=== PATIENT | male | born 1940 | race Caucasian/White ===

== ENCOUNTER 2021-04-02 | Emergency (ER) | payer MEDICARE | END 2021-04-02 09:59 | disposition home or self-care (01) | CPT/HCPCS: 36415; 80053; 81001; 82272; 83605; 85025; 85610; 85730; 86850; 86900; 86901; 87077; 87086; 87186; 93005; 96361; 96374; 99284 ==

== ENCOUNTER 2021-04-17 21:50 | Inpatient (IN) | payer MEDICARE ==
[2021-04-17] MEDS ORDERED: IPRATROPIUM-ALBUTEROL 3 ML NEB INHALATION STA ×2 (22:07→23:22)
[2021-04-17] MEDS ORDERED: MORPHINE SULFATE 4 MG/ML SYRINGE IVP STA (22:27)
--- NOTE | 2021-04-17 22:32 | ED ---
SOB HPI - General Chief Complaint: Shortness of Breath Stated Complaint: LYNN Time Seen by Provider: 04/17/21 22:00 Source: EMS, RN notes reviewed, old records reviewed Mode of arrival: EMS Limitations: altered mental status - History of Present Illness Initial Comments: This is a 80-year-old male poor story secondary able clinical state and unknown baseline mental status. EMS states patient is significantly short of breath call was for shortness of b reath and hypoxia. Patient's presented to the ER on BiPAP and respiratory failure, oxygens in the 50s to 60s MD Complaint: shortness of breath, cough -: unknown Severity: severe Severity scale (1-10): 10 Consistency: constant Improves With: nothing Worsens With: nothing Known History Of: congestive heart failure Context: recent URI, recent illness Associated Symptoms: cough, sputum production Treatments Prior to Arrival: oxygen, bronchodilator, NIPPV - Related Data Previous Rx's Medication Instructions Recorded Cephalexin [Keflex] 500 mg PO Q6HR 7 Days #28 cap 04/02/21 Allergies Allergy/AdvReac Type Severity Reaction Status Date / Time atorvastatin [From Lipitor] Allergy Unknown Verified 04/02/21 08:24 erythromycin base Allergy Unknown Verified 04/02/21 08:24 Iodinated Contrast Media Allergy Unknown Verified 04/02/21 08:24 Review of Systems ROS Statement: Those systems with pertinent positive or pertinent negative responses have been documented in the HPI. ROS Other: All systems not noted in ROS Statement are negative. Past Medical History Past Medical History: Atrial Fibrillation, Atrial Flutter, Heart Failure, Diabetes Mellitus, Hyperlipidemia, Hypertension, Osteoarthritis (OA), Renal Disease Additional Past Medical History / Comment(s): gastric ulcers, type 2DM. anemia, aortic avalve stenosis History of Any Multi-Drug Resistant Organisms: None Reported Past Surgical History: Ablation Past Psychological History: Anxiety Smoking Status: Former smoker Past Alcohol Use History: None Reported Past Drug Use History: None Reported General Exam Limitations: altered mental status, physical limitation General appearance: alert, anxious, obtunded, in distress Head exam: Present: atraumatic, normocephalic, normal inspection Eye exam: Present: normal appearance, PERRL, EOMI. Absent: scleral icterus, conjunctival injection, periorbital swelling ENT exam: Present: normal exam, mucous membranes moist Neck exam: Present: normal inspection. Absent: tenderness, meningismus, lymphadenopathy Respiratory exam: Present: respiratory distress, wheezes, rhonchi, accessory muscle use, decreased breath sounds, prolonged expiratory. Absent: rales, stridor Cardiovascular Exam: Present: regular rate, normal rhythm, normal heart sounds. Absent: systolic murmur, diastolic murmur, rubs, gallop, clicks GI/Abdominal exam: Present: soft, normal bowel sounds. Absent: distended, tenderness, guarding, rebound, rigid Extremities exam: Present: normal inspection, full ROM, normal capillary refill. Absent: tenderness, pedal edema, joint swelling, calf tenderness Back exam: Present: normal inspection Neurological exam: Present: alert, oriented X3, CN II-XII intact Psychiatric exam: Present: normal affect, normal mood Skin exam: Present: warm, dry, intact, normal color. Absent: rash Course Vital Signs 04/17/21 04/17/21 04/17/21 21:52 22:09 22:28 Temperature 98.0 F Pulse Rate 63 60 Respiratory 24 30 H Rate Blood Pressure 122/88 O2 Sat by Pulse 90 L Oximetry 04/17/21 22:41 Temperature Pulse Rate 64 Respiratory Rate Blood Pressure O2 Sat by Pulse Oximetry - Reevaluation(s) Reevaluation #1: 04/17/21 23:28 Medical records reviewed Reevaluation #2: 04/17/21 23:28 Patient's continues remained significantly short of breath here in the ER on BiPAP Reevaluation #3: 04/17/21 23:28 Did speak with patient regarding findings of difficult to tell what his mental status is - Consultations Consultation #1: Spoke with PMH regarding admission there agreed Medical Decision Making - Medical Decision Making 80 male in acute respiratory failure, significant pulmonary edema and ARDS. Patient will be admitted for pulmonary and cardiology to evaluate, on BiPAP - Lab Data Result diagrams: 04/17/21 22:07 04/17/21 22:07 Lab Results 04/17/21 04/17/21 04/17/21 Range/Units 22:07 22:07 22:07 WBC 13.9 H (3.8-10.6) k/uL RBC 4.31 (4.30-5.90) m/uL Hgb 11.8 L (13.0-17.5) gm/dL Hct 38.7 L (39.0-53.0) % MCV 89.8 (80.0-100.0) fL MCH 27.4 (25.0-35.0) pg MCHC 30.5 L (31.0-37.0) g/dL RDW 18.3 H (11.5-15.5) % Plt Count 182 (150-450) k/uL MPV 7.8 Neutrophils % 87 % Lymphocytes % 5 % Monocytes % 6 % Eosinophils % 1 % Basophils % 0 % Neutrophils # 12.2 H (1.3-7.7) k/uL Lymphocytes # 0.6 L (1.0-4.8) k/uL Monocytes # 0.8 (0-1.0) k/uL Eosinophils # 0.2 (0-0.7) k/uL Basophils # 0.0 (0-0.2) k/uL Hypochromasia Marked Anisocytosis Slight PT 16.4 H (9.0-12.0) sec INR 1.6 H (<1.2) APTT 34.6 H (22.0-30.0) sec Sodium 125 L (137-145) mmol/L Potassium 5.9 H (3.5-5.1) mmol/L Chloride 97 L (98-107) mmol/L Carbon Dioxide 17 L (22-30) mmol/L Anion Gap 11 mmol/L BUN 41 H (9-20) mg/dL Creatinine 1.82 H (0.66-1.25) mg/dL Est GFR (CKD-EPI)AfAm 40 (>60 ml/min/1.73 sqM) Est GFR (CKD-EPI)NonAf 35 (>60 ml/min/1.73 sqM) Glucose 96 (74-99) mg/dL Plasma Lactic Acid Brad (0.7-2.0) mmol/L Calcium 8.2 L (8.4-10.2) mg/dL Magnesium 2.9 H (1.6-2.3) mg/dL Total Bilirubin 0.6 (0.2-1.3) mg/dL AST 38 (17-59) U/L ALT 13 (4-49) U/L Alkaline Phosphatase 80 (38-126) U/L Creatine Kinase 23 L (55-170) U/L Troponin I (0.000-0.034) ng/mL Total Protein 6.6 (6.3-8.2) g/dL Albumin 2.9 L (3.5-5.0) g/dL 04/17/21 04/17/21 Range/Units 22:07 22:07 WBC (3.8-10.6) k/uL RBC (4.30-5.90) m/uL Hgb (13.0-17.5) gm/dL Hct (39.0-53.0) % MCV (80.0-100.0) fL MCH (25.0-35.0) pg MCHC (31.0-37.0) g/dL RDW (11.5-15.5) % Plt Count (150-450) k/uL MPV Neutrophils % % Lymphocytes % % Monocytes % % Eosinophils % % Basophils % % Neutrophils # (1.3-7.7) k/uL Lymphocytes # (1.0-4.8) k/uL Monocytes # (0-1.0) k/uL Eosinophils # (0-0.7) k/uL Basophils # (0-0.2) k/uL Hypochromasia Anisocytosis PT (9.0-12.0) sec INR (<1.2) APTT (22.0-30.0) sec Sodium (137-145) mmol/L Potassium (3.5-5.1) mmol/L Chloride (98-107) mmol/L Carbon Dioxide (22-30) mmol/L Anion Gap mmol/L BUN (9-20) mg/dL Creatinine (0.66-1.25) mg/dL Est GFR (CKD-EPI)AfAm (>60 ml/min/1.73 sqM) Est GFR (CKD-EPI)NonAf (>60 ml/min/1.73 sqM) Glucose (74-99) mg/dL Plasma Lactic Acid Brad 2.2 H* (0.7-2.0) mmol/L Calcium (8.4-10.2) mg/dL Magnesium (1.6-2.3) mg/dL Total Bilirubin (0.2-1.3) mg/dL AST (17-59) U/L ALT (4-49) U/L Alkaline Phosphatase (38-126) U/L Creatine Kinase (55-170) U/L Troponin I 0.014 (0.000-0.034) ng/mL Total Protein (6.3-8.2) g/dL Albumin (3.5-5.0) g/dL - EKG Data -: EKG Interpreted by Me (EKG is paced rhythm of 60 QRS 180 QTC 581) - Radiology Data Radiology results: report reviewed (Chest x-ray has significant pulmonary edema), image reviewed Critical Care Time Critical Care Time: Yes Total Critical Care Time: 31 Disposition Clinical Impression: Congestive heart failure, Acute pulmonary edema, Acute respiratory failure Disposition: ADMITTED IP TO THIS HOSP Condition: Critical Is patient prescribed a controlled substance at d/c from ED?: No Referrals: Salvatore Ha DO [Primary Care Provider] - 1-2 days
[2021-04-17 22:42] LABS: Albumin 2.9 g/dL (3.5-5.0); Calcium 8.2 mg/dL (8.4-10.2); Magnesium 2.9 mg/dL (1.6-2.3); Potassium 5.9 mmol/L (3.5-5.1); Total Bilirubin 0.6 mg/dL (0.2-1.3); Total Protein 6.6 g/dL (6.3-8.2)
--- NOTE | 2021-04-17 22:43 | XR ---
EXAMINATION TYPE: XR chest 1V portable DATE OF EXAM: 04/17/2021 COMPARISON: 05/03/2013 HISTORY: Short of breath TECHNIQUE: FINDINGS: There is pulmonary airspace edema. There is blunting of the costophrenic angles and more on the right side. There is left x-ray pacemaker. There are sternal wires. IMPRESSION: Congestive heart failure with pulmonary edema and pleural effusions that is essentially n ew compared to old exam.
[2021-04-17 22:48] LABS: INR 1.6 (<1.2); Partial Thromboplastin Time 34.6 sec (22.0-30.0); Prothrombin Time 16.4 sec (9.0-12.0)
[2021-04-17 22:57] LABS: Anisocytosis Slight; Basophils % (A) 0 %; Eosinophils # (A) 0.2 k/uL (0-0.7); Eosinophils % (A) 1 %; HCT 38.7 % (39.0-53.0); HGB 11.8 gm/dL (13.0-17.5); Hypochromasia Marked; Lymphocytes # (A) 0.6 k/uL (1.0-4.8); Lymphocytes % (A) 5 %; MCH 27.4 pg (25.0-35.0); MCHC 30.5 g/dL (31.0-37.0); MCV 89.8 fL (80.0-100.0); Mean Platelet Volume 7.8; Monocytes # (A) 0.8 k/uL (0-1.0); Monocytes % (A) 6 %; Neutrophils # (A) 12.2 k/uL (1.3-7.7); Neutrophils % (A) 87 %; Platelet Count 182 k/uL (150-450); RBC 4.31 m/uL (4.30-5.90); RDW 18.3 % (11.5-15.5); WBC 13.9 k/uL (3.8-10.6)
[2021-04-17] MEDS ORDERED: IPRATROPIUM-ALBUTEROL 3 ML NEB INHALATION PRN (23:22)
[2021-04-17] MEDS ORDERED: FUROSEMIDE 10 MG/ML 10 ML VIAL IV STA (23:22)
[2021-04-17] MEDS ORDERED: FUROSEMIDE 10 MG/ML 4 ML VIAL IV SCH (23:30)
[2021-04-18] MEDS ORDERED: MORPHINE SULFATE 4 MG/ML SYRINGE IVP PRN (00:46)
[2021-04-18] MEDS ORDERED: LORazepam 2 MG/ML INJ IV STA (00:46)
[2021-04-18] MEDS: LORazepam 2 MG/ML INJ IV PRN ×2 (02:17→07:04)
[2021-04-18] MEDS ORDERED: ACETAMINOPHEN TAB 325 MG TAB PO PRN (09:12)
[2021-04-18] MEDS ORDERED: MELATONIN 3 MG TABLET PO PRN (09:12)
[2021-04-18] MEDS ORDERED: SENNOSIDES 8.6 MG TAB PO PRN (09:12)
[2021-04-18] MEDS ORDERED: APIXABAN 5 MG TAB PO SCH ×2 (09:15→09:45)
[2021-04-18] MEDS ORDERED: FERROUS SULFATE 325 MG TAB PO SCH (09:15)
[2021-04-18] MEDS ORDERED: METOPROLOL SUCCINATE (ER) 100 MG TAB.ER.24H PO SCH (09:15)
[2021-04-18 09:41] LABS: Glucose,Whole Blood 73 mg/dL (75-99)
[2021-04-18] MEDS ORDERED: NOREPINEPHRIN 4 MG-0.9% NS PMX 4 MG/250 ML ML IV ONE (09:52)
[2021-04-18] MEDS ORDERED: DEXTROSE 50% SYRINGE 50 ML IVP ONE (09:56)
[2021-04-18 09:58] LABS: Glucose,Whole Blood 67 mg/dL (75-99)
--- NOTE | 2021-04-18 09:58 | P.HPIM ---
History of Present Illness Patient was [id number] male came in with altered mental status found to be hypoxic patient was started on BiPAP. Patient is found to be in heart failure with significant pulmonary bilateral pulmonary edema. She was hyponatr emic to his is ejection fraction is not known at this time patient has creatinine of 1.8 to baseline is around 0.8. Patient has highly elevated potassium of 5.9 patient is on lisinopril patient appears to be in significant heart failure. had BNP of 4 26,000 patient does have lactic acidosis which is bit worse compared to admission patient was started on IV Lasix. Patient does have history of atrial fibrillation is unknown Eliquis 5 g twice a day. Later in the day after admission patient became hypotensive, a team was called and patient was subsequently transferred to ICU for norepinephrine drip and IV fluids may need intubation please refer to the physicians note who was leading the A- team. REVIEW OF SYSTEMS: Unable to obtain due to his clinical condition PHYSICAL EXAMINATION: GENERAL: he is on BiPAP was not in acute respiratory distress when I valid the patient later on patient went into respiratory distress not in any acute distress. Well developed, well nourished. HEENT: Pupils are round and equally reacting to light. EOMI. No scleral icterus. No conjunctival pallor. Normocephalic, atraumatic. No pharyngeal erythema. No thyromegaly. She does have elevated JVD CARDIOVASCULAR: S1 and S2 present. No murmurs, rubs, or gallops. PULMONARY: Crackles bilaterally ABDOMEN: Soft, nontender, nondistended, normoactive bowel sounds. No palpable organomegaly. MUSCULOSKELETAL: No joint swelling or deformity. EXTREMITIES: No cyanosis, clubbing, and bilateral lower extremity edema NEUROLOGICAL: Gross neurological examination did not reveal any focal deficits. SKIN: No rashes. Assessment and plan -Congestive heart failure chronic systolic dysfunction with acute exacerbation: Patient was started on Lasix. Subsequently patient needed IV fluids and transferred to ICU please refer to the physicians note that was leading the A- team. Patient later on went into cardiac shock. -Acute hypoxic respiratory failure presently on BiPAP can you with Risperdal support -Acute renal failure prerenal azotemia secondary to congestive heart failure and possible cardiac shock -Hyperkalemia secondary to renal failure and SHANEL inhibitor -Hypervolemic hyponatremia secondary to heart failure -Atrial fibrillation presently rate rate controlled he appears to have persisten t A. fib patient has a pacemaker by a pacemaker EKG is consistent with the pacer rhythm -Type 2 diabetes mellitus -hyperlipidemia -Hypertension patient is presently hypotensive DVT prophylaxis: On Eliquis will cut down the dose of Eliquis to 2.5 mg twice a day considering his renal failure and this is expected to get worse because of hypotension. Past Medical History Past Medical History: Atrial Fibrillation, Atrial Flutter, Heart Failure, Diabetes Mellitus, Hyperlipidemia, Hypertension, Osteoarthritis (OA), Renal Disease Additional Past Medical History / Comment(s): gastric ulcers, type 2DM. anemia, aortic avalve stenosis History of Any Multi-Drug Resistant Organisms: None Reported Past Surgical History: Ablation Past Psychological History: Anxiety Smoking Status: Former smoker Past Alcohol Use History: None Reported Past Drug Use History: None Reported Medications and Allergies Home Medications Medication Instructions Recorded Confirmed Type ALPRAZolam [Xanax] 0.25 mg PO Q6H PRN 04/18/21 04/18/21 History Acetaminophen [Tylenol] 650 mg PO Q6H PRN 04/18/21 04/18/21 History Amiodarone [Cordarone] 200 mg PO DAILY 04/18/21 04/18/21 History Apixaban [Eliquis] 5 mg PO Q12H 04/18/21 04/18/21 History Aspirin 81 mg PO DAILY 04/18/21 04/18/21 History Calcium Carbonate/Vitamin D3 1 cap PO DAILY 04/18/21 04/18/21 History [Calcium 600 mg-D3 10 Mcg (400 Iu)] Cholecalciferol [Vitamin D3 (25 50 mcg PO DAILY 04/18/21 04/18/21 History Mcg = 1000 Iu)] Cyanocobalamin [Vitamin B-12 1,000 mcg SQ MO@2100 04/18/21 04/18/21 History Injection] Docusate [Colace] 100 mg PO BID 04/18/21 04/18/21 History Ezetimibe [Zetia] 10 mg PO HS 04/18/21 04/18/21 History Famotidine [Pepcid] 20 mg PO DAILY@0600 04/18/21 04/18/21 History Ferrous Sulfate [Feosol] 325 mg PO Q8H 04/18/21 04/18/21 History HYDROcodone/APAP 7.5-325MG [[place] 1 tab PO Q4H 04/18/21 04/18/21 History 7.5-325] Hyoscyamine Sulfate [Levsin] 0.125 mg PO Q4H PRN 04/18/21 04/18/21 History Ipratropium-Albuterol Nebulize 3 ml INHALATION RT-Q4H PRN 04/18/21 04/18/21 History [Duoneb 0.5 mg-3 mg/3 ml Soln] Levothyroxine Sodium [Synthroid] 50 mcg PO DAILY@0600 04/18/21 04/18/21 History Lidocaine 5% Patch [Lidoderm] 1 patch TRANSDERM DAILY 04/18/21 04/18/21 History Magnesium Oxide 400 mg PO HS 04/18/21 04/18/21 History Melatonin 3 mg PO HS 04/18/21 04/18/21 History Metoprolol Succinate (ER) [Toprol 100 mg PO DAILY 04/18/21 04/18/21 History Xl] Multivitamins, Thera [Multivitamin 1 tab PO DAILY 04/18/21 04/18/21 History (formulary)] Ondansetron HCl [Zofran] 4 mg PO Q8H PRN 04/18/21 04/18/21 History Rosuvastatin [Crestor] 20 mg PO HS 04/18/21 04/18/21 History Sennosides [Senna] 8.6 mg PO Q12H PRN 04/18/21 04/18/21 History Tamsulosin [Flomax] 0.4 mg PO HS 04/18/21 04/18/21 History lisinopriL [Zestril] 5 mg PO DAILY 04/18/21 04/18/21 History polyethylene glycoL 3350 [Miralax] 17 gm PO HS 04/18/21 04/18/21 History Allergies Allergy/AdvReac Type Severity Reaction Status Date / Time atorvastatin [From Lipitor] Allergy Unknown Verified 04/18/21 07:42 erythromycin base Allergy Unknown Verified 04/18/21 07:42 Iodinated Contrast Media Allergy Unknown Verified 04/18/21 07:42 Physical Exam Vitals: Vital Signs Temp Pulse Resp BP Pulse Ox 04/18/21 08:02 78 22 101/72 93 L 04/18/21 07:00 94/64 88 L 04/18/21 06:29 98.6 F 73 28 H 87/55 96 04/18/21 04:29 76 28 H 114/67 97 04/18/21 02:22 98.3 F 70 36 H 117/64 88 L 04/17/21 23:36 63 20 129/85 94 L 04/17/21 22:41 64 04/17/21 22:28 60 04/17/21 22:09 30 H 04/17/21 21:52 98.0 F 63 24 122/88 90 L Intake and Output 04/17/21 04/18/21 04/18/21 22:59 06:59 14:59 Output Total 675 Balance -675 Output: Urine 675 Other: Weight 72.575 kg Results CBC & Chem 7: 04/17/21 22:07 04/17/21 22:07 Labs: Abnormal Lab Results - Last 24 Hours (Table) 04/17/21 04/17/21 04/17/21 Range/Units 22:07 22:07 22:07 WBC 13.9 H (3.8-10.6) k/uL Hgb 11.8 L (13.0-17.5) gm/dL Hct 38.7 L (39.0-53.0) % MCHC 30.5 L (31.0-37.0) g/dL RDW 18.3 H (11.5-15.5) % Neutrophils # 12.2 H (1.3-7.7) k/uL Lymphocytes # 0.6 L (1.0-4.8) k/uL PT 16.4 H (9.0-12.0) sec INR 1.6 H (<1.2) APTT 34.6 H (22.0-30.0) sec Sodium 125 L (137-145) mmol/L Potassium 5.9 H (3.5-5.1) mmol/L Chloride 97 L (98-107) mmol/L Carbon Dioxide 17 L (22-30) mmol/L BUN 41 H (9-20) mg/dL Creatinine 1.82 H (0.66-1.25) mg/dL POC Glucose (mg/dL) (75-99) mg/dL Plasma Lactic Acid Brad (0.7-2.0) mmol/L Calcium 8.2 L (8.4-10.2) mg/dL Magnesium 2.9 H (1.6-2.3) mg/dL Creatine Kinase 23 L (55-170) U/L Albumin 2.9 L (3.5-5.0) g/dL 04/17/21 04/18/21 04/18/21 Range/Units 22:07 01:09 04:26 WBC (3.8-10.6) k/uL Hgb (13.0-17.5) gm/dL Hct (39.0-53.0) % MCHC (31.0-37.0) g/dL RDW (11.5-15.5) % Neutrophils # (1.3-7.7) k/uL Lymphocytes # (1.0-4.8) k/uL PT (9.0-12.0) sec INR (<1.2) APTT (22.0-30.0) sec Sodium (137-145) mmol/L Potassium (3.5-5.1) mmol/L Chloride (98-107) mmol/L Carbon Dioxide (22-30) mmol/L BUN (9-20) mg/dL Creatinine (0.66-1.25) mg/dL POC Glucose (mg/dL) (75-99) mg/dL Plasma Lactic Acid Brad 2.2 H* 2.9 H* 3.2 H* (0.7-2.0) mmol/L Calcium (8.4-10.2) mg/dL Magnesium (1.6-2.3) mg/dL Creatine Kinase (55-170) U/L Albumin (3.5-5.0) g/dL 04/18/21 04/18/21 Range/Units 07:23 09:40 WBC (3.8-10.6) k/uL Hgb (13.0-17.5) gm/dL Hct (39.0-53.0) % MCHC (31.0-37.0) g/dL RDW (11.5-15.5) % Neutrophils # (1.3-7.7) k/uL Lymphocytes # (1.0-4.8) k/uL PT (9.0-12.0) sec INR (<1.2) APTT (22.0-30.0) sec Sodium (137-145) mmol/L Potassium (3.5-5.1) mmol/L Chloride (98-107) mmol/L Carbon Dioxide (22-30) mmol/L BUN (9-20) mg/dL Creatinine (0.66-1.25) mg/dL POC Glucose (mg/dL) 73 L (75-99) mg/dL Plasma Lactic Acid Brad 2.7 H* (0.7-2.0) mmol/L Calcium (8.4-10.2) mg/dL Magnesium (1.6-2.3) mg/dL Creatine Kinase (55-170) U/L Albumin (3.5-5.0) g/dL
[2021-04-18] MEDS: AMIODARONE 200 MG TAB PO SCH (10:00)
[2021-04-18 10:03] LABS: ABG HCO3 19 mmol/L (21-25); ABG Oxygen Saturation 94.6 % (94-97); ABG PCO2 34 mmHg (35-45); ABG PH 7.35 (7.35-7.45); ABG PO2 75 mmHg (83-108); ABG TCO2 20 mmol/L (19-24); Allen Test Performed? Yes
--- NOTE | 2021-04-18 10:14 | P.CNPUL ---
History of Present Illness Consult date: 04/18/21 Requesting physician: Amy Kelly Reason for consult: dyspnea, hypoxemia, abnormal CXR/CT Chief complaint: Respiratory failure, CHF. History of present illness: Pulmonary consult dated 04/18/2021. 80-year-old male, who was brought into the emergency room by EMS on April 17. He was seen by the ER physician there for shortness of breath and mental status changes. Apparently, according to the ER documentation, the patient was a very poor historian, and may be because of low saturations, no history could be obtained but he primarily came into the ER with shortness of breath. Apparently saturations initially were in the 50s to 60s. The patient was placed on BiPAP. His BiPAP settings were 12/5 and 80%. He was not receiving any IV fluids. His chest x-ray was consistent with congestive heart failure and he did have lower extremity edema. I actually saw the patient in the emergency department. Subsequent to that, the patient apparently became hypotensive. I asked the hospital team to move the patient to the ICU, give the patient some additional fluids, start the patient on norepinephrine for blood pressure support. He apparently has a history of chronic atrial fibrillation/flutter, CHF, diabetes, hyperlipidemia, hypertension, DJD, and chronic kidney disease. He also has a history of aortic valve stenosis, gastric ulcers, and previous ablation for his atrial fibrillation. He also was a prior smoker. White count 13.9, hemoglobin 11.8, hematocrit 38.7, and platelet count 182,000. PT 16.4, INR 1.6, PTT 34.6. Sodium 125, potassium 5.9, chlorides 97, CO2 17, anion gap 11, BUN 41, creatinine 1.82. The patient's lactic acid was initially 2.2 and repeat was 2.7. The N-terminal proBNP was 26,000. Troponins were 0.014. Chest x-ray was consistent with congestive heart failure and cardiomegaly. Review of Systems REVIEW OF SYSTEMS: CONSTITUTIONAL: Lethargy and somnolence. NEUROLOGIC: [ Negative.] HEENT: [ Negative.] CARDIAC: [Negative.] PULMONARY: Shortness of breath. GI: [Negative.] : [Negative.] RHEUMATOLOGIC: [ Negative.] IMMUNOLOGIC: [ Negative.] ENDOCRINE: [Negative. ] DERMATOLOGIC: [Negative.] Past Medical History Past Medical History: Atrial Fibrillation, Atrial Flutter, Heart Failure, Diabetes Mellitus, Hyperlipidemia, Hypertension, Osteoarthritis (OA), Renal Disease Additional Past Medical History / Comment(s): gastric ulcers, type 2DM. anemia, aortic avalve stenosis History of Any Multi-Drug Resistant Organisms: None Reported Past Surgical History: Ablation Past Psychological History: Anxiety Smoking Status: Former smoker Past Alcohol Use History: None Reported Past Drug Use History: None Reported Medications and Allergies Home Medications Medication Instructions Recorded Confirmed Type ALPRAZolam [Xanax] 0.25 mg PO Q6H PRN 04/18/21 04/18/21 History Acetaminophen [Tylenol] 650 mg PO Q6H PRN 04/18/21 04/18/21 History Amiodarone [Cordarone] 200 mg PO DAILY 04/18/21 04/18/21 History Apixaban [Eliquis] 5 mg PO Q12H 04/18/21 04/18/21 History Aspirin 81 mg PO DAILY 04/18/21 04/18/21 History Calcium Carbonate/Vitamin D3 1 cap PO DAILY 04/18/21 04/18/21 History [Calcium 600 mg-D3 10 Mcg (400 Iu)] Cholecalciferol [Vitamin D3 (25 50 mcg PO DAILY 04/18/21 04/18/21 History Mcg = 1000 Iu)] Cyanocobalamin [Vitamin B-12 1,000 mcg SQ MO@2100 04/18/21 04/18/21 History Injection] Docusate [Colace] 100 mg PO BID 04/18/21 04/18/21 History Ezetimibe [Zetia] 10 mg PO HS 04/18/21 04/18/21 History Famotidine [Pepcid] 20 mg PO DAILY@0600 04/18/21 04/18/21 History Ferrous Sulfate [Feosol] 325 mg PO Q8H 04/18/21 04/18/21 History HYDROcodone/APAP 7.5-325MG [Murtaugh 1 tab PO Q4H 04/18/21 04/18/21 History 7.5-325] Hyoscyamine Sulfate [Levsin] 0.125 mg PO Q4H PRN 04/18/21 04/18/21 History Ipratropium-Albuterol Nebulize 3 ml INHALATION RT-Q4H PRN 04/18/21 04/18/21 History [Duoneb 0.5 mg-3 mg/3 ml Soln] Levothyroxine Sodium [Synthroid] 50 mcg PO DAILY@0600 04/18/21 04/18/21 History Lidocaine 5% Patch [Lidoderm] 1 patch TRANSDERM DAILY 04/18/21 04/18/21 History Magnesium Oxide 400 mg PO HS 04/18/21 04/18/21 History Melatonin 3 mg PO HS 04/18/21 04/18/21 History Metoprolol Succinate (ER) [Toprol 100 mg PO DAILY 04/18/21 04/18/21 History Xl] Multivitamins, Thera [Multivitamin 1 tab PO DAILY 04/18/21 04/18/21 History (formulary)] Ondansetron HCl [Zofran] 4 mg PO Q8H PRN 04/18/21 04/18/21 History Rosuvastatin [Crestor] 20 mg PO HS 04/18/21 04/18/21 History Sennosides [Senna] 8.6 mg PO Q12H PRN 04/18/21 04/18/21 History Tamsulosin [Flomax] 0.4 mg PO HS 04/18/21 04/18/21 History lisinopriL [Zestril] 5 mg PO DAILY 04/18/21 04/18/21 History polyethylene glycoL 3350 [Miralax] 17 gm PO HS 04/18/21 04/18/21 History Allergies Allergy/AdvReac Type Severity Reaction Status Date / Time atorvastatin [From Lipitor] Allergy Unknown Verified 04/18/21 07:42 erythromycin base Allergy Unknown Verified 04/18/21 07:42 Iodinated Contrast Media Allergy Unknown Verified 04/18/21 07:42 Physical Exam Osteopathic Statement: *. No significant issues noted on an osteopathic structural exam other than those noted in the History and Physical/Consult. Vitals: Vital Signs Temp Pulse Resp BP Pulse Ox 04/18/21 08:02 78 22 101/72 93 L 04/18/21 07:00 94/64 88 L 04/18/21 06:29 98.6 F 73 28 H 87/55 96 04/18/21 04:29 76 28 H 114/67 97 04/18/21 02:22 98.3 F 70 36 H 117/64 88 L 04/17/21 23:36 63 20 129/85 94 L 04/17/21 22:41 64 04/17/21 22:28 60 04/17/21 22:09 30 H 04/17/21 21:52 98.0 F 63 24 122/88 90 L Intake and Output 04/17/21 04/18/21 04/18/21 22:59 06:59 14:59 Output Total 675 Balance -675 Output: Urine 675 Other: Weight 72.575 kg Mild tachypnea, patient very somnolent/lethargic, BiPAP mask in place. HEENT examination is grossly unremarkable. Neck supple. Full range of motion. No adenopathy thyromegaly or neck vein distention. Cardiovascular examination reveals regular rhythm rate. S1-S2 normal. No S3 or S4. No discernible murmur noted. Heart rate is 78 bpm. Heart sounds are very distant. There is a well-healed median sternotomy scar on the chest. Lungs reveal bibasilar crackles. A few scattered rhonchi. Breath sounds are equal but diminished throughout. No distinct wheezes are noted. Abdomen soft bowel sounds are heard. No masses or tenderness. Extremities are intact. No cyanosis or clubbing. Fingertips are cool. There is lower extremity edema. Skin is without rash or lesion. Neurologic examination is very difficult to assess. Results - Laboratory Findings CBC and BMP: 04/17/21 22:07 04/17/21 22:07 PT/INR, D-dimer PT 16.4 sec (9.0-12.0) H 04/17/21 22:07 INR 1.6 (<1.2) H 04/17/21 22:07 Abnormal lab findings: Abnormal Labs 04/17/21 04/17/21 04/17/21 22:07 22:07 22:07 WBC 13.9 H Hgb 11.8 L Hct 38.7 L MCHC 30.5 L RDW 18.3 H Neutrophils # 12.2 H Lymphocytes # 0.6 L PT 16.4 H INR 1.6 H APTT 34.6 H Sodium 125 L Potassium 5.9 H Chloride 97 L Carbon Dioxide 17 L BUN 41 H Creatinine 1.82 H POC Glucose (mg/dL) Plasma Lactic Acid Brad Calcium 8.2 L Magnesium 2.9 H Creatine Kinase 23 L Albumin 2.9 L 04/17/21 04/18/21 04/18/21 22:07 01:09 04:26 WBC Hgb Hct MCHC RDW Neutrophils # Lymphocytes # PT INR APTT Sodium Potassium Chloride Carbon Dioxide BUN Creatinine POC Glucose (mg/dL) Plasma Lactic Acid Brad 2.2 H* 2.9 H* 3.2 H* Calcium Magnesium Creatine Kinase Albumin 04/18/21 04/18/21 04/18/21 07:23 09:40 09:56 WBC Hgb Hct MCHC RDW Neutrophils # Lymphocytes # PT INR APTT Sodium Potassium Chloride Carbon Dioxide BUN Creatinine POC Glucose (mg/dL) 73 L 67 L Plasma Lactic Acid Brad 2.7 H* Calcium Magnesium Creatine Kinase Albumin - Diagnostic Findings Chest x-ray: image reviewed Assessment and Plan Assessment: Acute hypoxemic respiratory failure secondary to congestive heart failure. History of atrial fibrillation/atrial flutter, status post ablation. His type 2 diabetes mellitus. History of aortic valve stenosis. History of hyperlipidemia. His stream of hypertension. Osteoarthritis. Chronic kidney disease. History of gastric ulcers. History of anemia. Prior thoracic surgery, but details are not known. Plan: Plan dated 04/18/2021. The patient be transferred to the intensive care unit. I told the nurses give the patient fluids initially and then some norepinephrine. Additional recommendations and suggestions are forthcoming. The patient may end up eating intubated for respiratory failure. Additional recommendations and suggestions are forthcoming. His medications are reviewed. Prognosis is very guarded. Unnecessary oral medications are discontinued. We will continue to follow make recommendations where appropriate. Time with Patient: Greater than 30
[2021-04-18 10:15] VITALS: BMI 25.0
[2021-04-18 10:19] LABS: Glucose,Whole Blood 119 mg/dL (75-99)
[2021-04-18 10:45] LABS: Albumin 2.2 g/dL (3.5-5.0); Calcium 7.7 mg/dL (8.4-10.2); Potassium 5.6 mmol/L (3.5-5.1); Total Bilirubin 0.4 mg/dL (0.2-1.3); Total Protein 5.2 g/dL (6.3-8.2)
[2021-04-18 11:06] LABS: Anisocytosis Slight; Basophils # (A) 0.1 k/uL (0-0.2); Basophils % (A) 1 %; Eosinophils % (A) 0 %; HCT 34.7 % (39.0-53.0); HGB 10.3 gm/dL (13.0-17.5); Hypochromasia Marked; Lymphocytes # (A) 0.3 k/uL (1.0-4.8); Lymphocytes % (A) 2 %; MCH 28.4 pg (25.0-35.0); MCHC 29.7 g/dL (31.0-37.0); Macrocytosis Slight; Mean Platelet Volume 9.3; Monocytes # (A) 0.8 k/uL (0-1.0); Monocytes % (A) 4 %; Neutrophils # (A) 16.9 k/uL (1.3-7.7); Neutrophils % (A) 93 %; Platelet Count 126 k/uL (150-450); RBC 3.63 m/uL (4.30-5.90); RDW 17.9 % (11.5-15.5); WBC 18.1 k/uL (3.8-10.6)
[2021-04-18 11:13] LABS: MCV 95.6 fL (80.0-100.0)
[2021-04-18] MEDS ORDERED: SODIUM CHLORIDE 0.9% 2,000 ML IV ONE (11:28)
[2021-04-18] MEDS ORDERED: HYDROcodone/APAP 7.5-325MG 1 EACH TAB PO SCH (12:00)
[2021-04-18] MEDS: NOREPINEPHRINE 4 MG in SODIUM CHLORIDE 0.9% 250 ML IV SCH (12:43)
[2021-04-18] MEDS: SODIUM CHLORIDE 0.9% 1,000 ML IV SCH (12:44)
[2021-04-18] MEDS ORDERED: FUROSEMIDE 10 MG/ML 4 ML VIAL IV STA (14:12)
--- NOTE | 2021-04-18 14:34 | CDI ---
Documentation Clarification Form Date: 04/18/2021 01:41:00 PM From: Delfina Ornelas RN, CCDS Admit Date: 04/17/2021 11:27:00 PM Patient Name: Patricio Ha Visit Number: [id number] Discharge Date: ATTENTION: The Clinical Documentation Specialists (CDI) and [facility] Coding Staff appreciate your assistance in clarifying documentation. Please respond to the clarification below the line at the bottom and electronically sign. The CDI & [facility] Coding staff will review the response and follow-up if needed. Please note: Queries are made part of the Legal Health Record. If you have any questions, please contact the author of this message via ITS. Dr. Wendy Paula Your patient has the documented symptom of Altered Mental Status in the ED assessment and H/P. Additional clarification regarding the etiology/cause of this symptom is requested. 04/18 Pulmonary consult: neurologic examination is very difficult to assess, mild tachypnea, patient very somnolent/lethargic. History/Risk Factors: Atrial Fibrillation, Atrial Flutter< Heart Failure, Diabetes Mellitus, Hypertension, Renal Disease Clinical Indicators: [id number] male present via EMS to ED with altered mental status fond to be hypoxic and was started on BIPAP. 04/17 vital signs: 122/88 63 24 98.0 90 % BIPAP (FiO2 500 04/17 ED assessment: anxious obtunded, in distress 04/17 Labs WBC 13.9, Sodium 125, potassium 5.9, BUN 41, CR 1.82 Lactic acid 2.2, magnesium 2.9, BNP 72630 04/18 Labs: ABG pH7.35, pCO2 34, pO2 75 HCO3 19; WBC 18.1, Sodium 124, Potassium 5.6 BUN 44, CR 1.76, Lactic acid 2.7 04/17 CXR: Congestive heart failure with pulmonary edema and pleural effusion Treatment: ICU/Telemetry monitoring CBC/Metabolic panel daily Blood culture (pending) .9% NS 2,000 IV bolus Monitor O2 Sat's (titrate Duoneb Inhalation Q4HRS PRN Levophed 4 MG IV (Titrate per orders) Please clarify the etiology of the symptom of Altered Mental Status: [ ] Metabolic encephalopathy due to abnormal labs [ } Hypoxic Encephalopathy due to Acute hypoxic respiratory failure [ ] Metabolic Encephalopathy and Hypoxic Encephalopathy due to abnormal labs and acute hypoxic respiratory failure [ ] Other condition (please specify) [ ] Unable to determine (Template Last Revised: October 2020) No encephalopathy MTDD
[2021-04-18 16:39] LABS: Appearance,Urine Clear (Clear); Bacteria,Urine Rare /hpf; Bilirubin,Urine Negative (Negative); Blood,Urine Small (Negative); Color,Urine Yellow; Glucose,Urine (UA) Negative (Negative); Hyaline Casts,Urine 65 /lpf (0-2); Ketones,Urine Negative (Negative); Leukocyte Esterase,Urine Negative (Negative); Mucus,Urine Rare /hpf; Nitrite,Urine Negative (Negative); PH, Urine 5.5 (5.0-8.0); Protein,Urine 1+ (Negative); RBC,Urine 9 /hpf (0-5); Specific Gravity,Urine 1.016 (1.001-1.035); Squamous Epithelial Cell,Urine <1 /hpf (0-4); Urobilinogen,Urine <2.0 mg/dL (<2.0); WBC,Urine 3 /hpf (0-5)
--- NOTE | 2021-04-18 17:36 | ECHOF ---
Referral Reason:chf MEASUREMENTS -------- HEIGHT: 170.2 cm WEIGHT: 72.6 kg BP: 117/75 RVIDd: 3.9 cm (< 3.3) IVSd: 1.5 cm (0.6 - 1.1) LVIDd: 3.5 cm (3.9 - 5.3) LVPWd: 1.4 cm (0.6 - 1.1) IVSs: 2.0 cm LVIDs: 2.6 cm LVPWs: 1.9 cm LA Diam: 4.2 cm (2.7 - 3.8) Ao Diam: 2.7 cm (2.0 - 3.7) MV E Joseluis: 2.05 m/s MV DecT: 129 ms MV A Joseluis: 0.58 m/s MV E/A Ratio: 3.51 AV maxP.27 mmHg AV meanP.02 mmHg RAP: 5.00 mmHg RVSP: 49.55 mmHg FINDINGS -------- Paced rhythm. This was a technically adequate study. The left ventricular size is normal. There is moderate concentric left ventricular hypertrophy. O verall left ventricular systolic function is normal with, an EF between 65 - 70 %. Basal inferior L V wall motion is hypokinetic. The right ventricle is mild to moderately enlarged. The left atrium is mildly dilated. The right atrium is normal in size. Peak/mean gradient across the Aortic Valve is 22.27mmHg / 9.02mmHg. Normally functioning bioprosthe tic valve. TAVR procedure done The mitral valve leaflets are mildly thickened. Mild mitral annular calcification present. The p eak and mean MV gradients are 20.94mmHg 6.37mmHg as measured by doppler. MV Repair. [id number] tricuspid regurgitation present. There is moderate pulmonary hypertension. The r ight ventricular systolic pressure, as measured by Doppler, is 49.55mmHg. Trace/mild (physiologic) pulmonic regurgitation. The aortic root size is normal. IVC Not well visulized. There is no pericardial effusion. CONCLUSIONS -------- 1. The left ventricular size is normal. 2. There is moderate concentric left ventricular hypertrophy. 3. Overall left ventricular systolic function is normal with, an EF between 65 - 70 %. 4. Basal inferior LV wall motion is hypokinetic. 5. The right ventricle is mild to moderately enlarged. 6. The left atrium is mildly dilated. 7. Peak/mean gradient across the Aortic Valve is 22.27mmHg / 9.02mmHg. 8. Normally functioning bioprosthetic valve. 9. TAVR procedure done 10. The mitral valve leaflets are mildly thickened. 11. Mild mitral annular calcification present. 12. The peak and mean MV gradients are 20.94mmHg 6.37mmHg as measured by doppler. 13. MV Repair. 14. Ezid-[id number] tricuspid regurgitation present. 15. There is moderate pulmonary hypertension. 16. The right ventricular systolic pressure, as measured by Doppler, is 49.55mmHg. 17. Trace/mild (physiologic) pulmonic regurgitation. 18. There is no pericardial effusion. INTELLIGENCE RESEARCH SPECIALIST: Kristen Vazquez RDCS
--- NOTE | 2021-04-18 18:38 | CONS ---
CONSULTATION Mr. Ha is a 80-year-old male who was transferred from alf with symptoms of progressive dyspnea and worsening mental status. He was noted to be hypoxic. He is awake but not able to answer questions. I do not have any prior admissions. It appears that the patient had a prior history of coronary bypass grafting, history of chronic kidney disease, history of diabetes, atrial fibrillation, hyperlipidemia and hypertension. He was quite hypoxic on presentation and he had evidence of congestive heart failure and had peripheral edema. In view of that, the patient was admitted. He is on the BiPAP at this time. He is on norepinephrine. No other history is available at this time. He has a history of valvular disease although details of that are not available to me, it was mentioned aortic stenosis in the notes but no details of that are available. He has a defibrillator on the chest x-ray. His chest x-ray on admission was consistent with congestive heart failure and fluid overload. MEDICATION: At time of transfer include included Zestril 5 mg daily, Crestor 20 mg daily, metoprolol succinate 100 mg daily, Zetia 10 mg daily, Eliquis 5 mg twice a day, Coreg 200 mg daily, aspirin once a day, Synthroid, DuoNeb, Levsin, Pepcid, vitamin B, vitamin D, Flomax, and MiraLAX. REVIEW OF SYSTEMS: Review of systems could not be obtained. PHYSICAL EXAMINATION: He is a 80-year-old male, alert, on BiPAP, not able to answer questions appropriately. His blood pressure is up to 117. He was down to the 60s and 70s. His heart rate is in the 70s. HEAD: Normocephalic. EYES: Sclerae anicteric. NECK: With the IJ noted on the right side. LUNGS: With decreased breath sounds bilaterally with crackles. HEART: Revealed an underlying atrial fibrillation with paced rhythm. S1, S2 and a systolic murmur at the base. No diastolic murmur. ABDOMEN: Soft, nontender, positive bowel sounds, no organomegaly. EXTREMITIES: +2 edema. LAB DATA: Lab data revealed a white blood cell of 13.91, hemoglobin of 11.8. His INR is 1.6. BUN and creatinine 41 and 1.82. Potassium 5.9. His troponin 0.014, less than 0.012 and 0[place]014[place] [id number]. His plasma lactic acid was 2.2 on admission and went up to 3.2, is down to 2.7 at this time. His BUN and creatinine this today 44 and 176, potassium 5.6. His hemoglobin is 10.3. His TSH 7.48. His EKG revealed atrial fibrillation with paced rhythm. His chest x-ray is consistent with congestive heart failure. IMPRESSION: 1. Respiratory failure with evidence of congestive heart failure. I would assume that the patient has cardiomyopathy based on the fact that he has an ICD, although no documentation of his prior LV function is available to me. 2. History of open-heart surgery. Details of that are not available. 3. Atrial fibrillation status post ablation, anticoagulated. 4. Diabetes mellitus. 5. Hyperlipidemia. 6. Chronic kidney disease. 7. Anemia. RECOMMENDATION: I will try to obtain the prior workup through the family. The nursing staff will try to contact the family and find out where his prior workup was done. In the meantime, I will obtain an echocardiogram with Doppler. I will restart him on a low dose of his beta james. The patient is receiving fluid at this time because of the elevated lactic acid. Subsequently, he would require diuresis. Depending on the results of testing, further recommendation will be made. Thank you for this consult. We will follow with you. MMODL / IJN: [id number] /
[2021-04-18] MEDS: IPRATROPIUM-ALBUTEROL 3 ML NEB INHALATION PRN (19:51)
[2021-04-18] MEDS: METOPROLOL TARTRATE 25 MG TAB PO SCH (20:55)
[2021-04-18] MEDS ORDERED: NON FORMULARY DRUG (Rosuvastatin 20 MG Tablet) PO SCH (21:00)
[2021-04-18] MEDS ORDERED: DOCUSATE 100 MG CAP PO SCH (21:00)
[2021-04-18] MEDS ORDERED: TAMSULOSIN 0.4 MG CAP.ER.24H PO SCH (21:00)
[2021-04-18] MEDS ORDERED: EZETIMIBE 10 MG TAB PO SCH (21:00)
[2021-04-18] MEDS ORDERED: APIXABAN 2.5 MG TABLET PO SCH (21:00)
[2021-04-18] MEDS ORDERED: MAGNESIUM OXIDE 400 MG TAB PO SCH (21:00)
[2021-04-18] MEDS ORDERED: polyethylene glycoL 3350 17 GM POWD.PACK PO SCH (21:00)
[2021-04-19] MEDS: SODIUM CHLORIDE 0.9% 1,000 ML IV SCH (00:20)
[2021-04-19 04:03] VITALS: TEMP 97.7
[2021-04-19 04:54] LABS: Anisocytosis Slight; Basophils % (A) 0 %; Eosinophils # (A) 0.1 k/uL (0-0.7); Eosinophils % (A) 1 %; HCT 38.4 % (39.0-53.0); HGB 11.4 gm/dL (13.0-17.5); Hypochromasia Marked; Lymphocytes # (A) 0.3 k/uL (1.0-4.8); Lymphocytes % (A) 2 %; MCH 27.5 pg (25.0-35.0); MCHC 29.7 g/dL (31.0-37.0); MCV 92.6 fL (80.0-100.0); Mean Platelet Volume 8.9; Monocytes # (A) 0.9 k/uL (0-1.0); Monocytes % (A) 5 %; Neutrophils # (A) 17.1 k/uL (1.3-7.7); Neutrophils % (A) 92 %; Platelet Count 148 k/uL (150-450); RBC 4.15 m/uL (4.30-5.90); RDW 18.2 % (11.5-15.5); WBC 18.5 k/uL (3.8-10.6)
[2021-04-19 05:05] LABS: Calcium 7.9 mg/dL (8.4-10.2)
[2021-04-19] MEDS: NOREPINEPHRINE 4 MG in SODIUM CHLORIDE 0.9% 250 ML IV SCH (05:31)
[2021-04-19] MEDS ORDERED: LEVOTHYROXINE 50 MCG TAB PO SCH (06:00)
[2021-04-19] MEDS ORDERED: FAMOTIDINE 20 MG TAB PO SCH (06:00)
[2021-04-19 06:19] LABS: Potassium 5.3 mmol/L (3.5-5.1)
[2021-04-19] MEDS ORDERED: FUROSEMIDE 10 MG/ML 4 ML VIAL IV STA (07:09)
--- NOTE | 2021-04-19 07:48 | PN ---
PROGRESS NOTE Mr. Ha is a 80-year-old male who presented with symptoms of progressive dyspnea and change in mental status, hypoxemia. He continues to be on the BiPAP. He is in atrial fibrillation which is chronic. He had a prior history of aortic valve surgery. Other detail about his cardiac status is not available to me. Apparently, he has been followed by Dr. Coleman Steve at [facility] and we will try to get some records. He continued to be in atrial fibrillation. His ventricular response is overall controlled. He had an echocardiogram performed yesterday that revealed a preserved left ventricular size with basal inferior wall hypokinesis. His aortic valve bioprosthesis has a normal function with a mean gradient of 8 mmHg. He had evidence of mitral valve repair with mild to moderate tricuspid regurgitation. He continues to be at this time on amiodarone 200 mg daily, Eliquis 2.5 mg twice a day, aspirin 81 mg daily, metoprolol tartrate 25 mg twice a day. PHYSICAL EXAMINATION: VITAL SIGNS: Blood pressure 109/60 with the heart in 60s. LUNGS: With no wheezes or rales anteriorly. HEART: Irregularly irregular S1, S2. No S3 with systolic murmur. No diastolic murmur. No rub. ABDOMEN: Soft and nontender. Positive bowel sounds. EXTREMITIES: +1 edema. LAB DATA: Lab data revealed BUN and creatinine 42 and 1.26, potassium 5.3, sodium of 130, which is improved. His hemoglobin is 11.4. IMPRESSION: 1. Respiratory failure with element of congestive heart failure with preserved systolic function. 2. Status post aortic and mitral valve surgery. Unclear if he had a bypass. 3. Atrial fibrillation, anticoagulated. 4. Diabetes. 5. Hyperlipidemia. 6. Chronic kidney disease. RECOMMENDATION: We will try to obtain the results of his prior cardiac workup. I will increase the dose of his Eliquis to 5 mg twice a day. I will give him 1 dose of diuretics. I will continue on the beta james as present. Will follow his renal function and depending on his progress further recommendation will be made. MMODL / BOLAN: [id number] /
[2021-04-19] MEDS ORDERED: CALCIUM CARB-VIT D 500 MG-5 MCG TAB PO SCH (09:00)
[2021-04-19] MEDS ORDERED: APIXABAN 5 MG TAB PO SCH (09:00)
[2021-04-19] MEDS ORDERED: CHOLECALCIFEROL 25 MCG (1000 IU) TABLET PO SCH (09:00)
[2021-04-19] MEDS ORDERED: ASPIRIN 81 MG PO SCH (09:00)
[2021-04-19] MEDS: IPRATROPIUM-ALBUTEROL 3 ML NEB INHALATION PRN (09:10)
[2021-04-19] MEDS: AMIODARONE 200 MG TAB PO SCH (09:48)
[2021-04-19] MEDS: METOPROLOL TARTRATE 25 MG TAB PO SCH (09:49)
--- NOTE | 2021-04-19 09:58 | XR ---
EXAMINATION TYPE: XR chest 1V portable DATE OF EXAM: 04/19/2021 COMPARISON: 04/17/2021 HISTORY: 80 years Male. STUDY INDICATION GIVEN: Congestion TECHNIQUE: Upright AP portable chest radiograph FINDINGS AND IMPRESSION: Diffuse central and peripheral increase in interstitial opacities similar to prior study and cardiome fabian with trace left and small right pleural effusion most consistent with congestive heart failure. This has perhaps improved slightly Right side pleural effusion has decreased in size compared to 2 days ago. Focal airspace disease/pneumonia cannot be excluded from the study. No pneumothorax. Postsurgical changes and cardiac devices stable in appearance. Diffuse osteopenia, degenerative changes in the spine.
--- NOTE | 2021-04-19 10:11 | P.PN ---
Subjective Progress Note Date: 04/19/21 Principal diagnosis: Shortness of breath, congestive heart failure. Pulmonary consult dated 04/18/2021. 80-year-old male, who was brought into the emergency room by EMS on April 17. He was seen by the ER physician there for shortness of breath and mental status changes. Apparently, according to the ER documentation, the patient was a very poor historian, and may be because of low saturations, no history could be obtained but he primarily came into the ER with shortness of breath. Apparently saturations initially were in the 50s to 60s. The patient was placed on BiPAP. His BiPAP settings were 12/5 and 80%. He was not receiving any IV fluids. His chest x-ray was consistent with congestive heart failure and he did have lower extremity edema. I actually saw the patient in the emergency department. Subsequent to that, the patient apparently became hypotensive. I asked the hospital team to move the patient to the ICU, give the patient some additional fluids, start the patient on norepinephrine for blood pressure support. He apparently has a history of chronic atrial fibrillation/flutter, CHF, diabetes, hyperlipidemia, hypertension, DJD, and chronic kidney disease. He also has a history of aortic valve stenosis, gastric ulcers, and previous ablation for his atrial fibrillation. He also was a prior smoker. White count 13.9, hemoglobin 11.8, hematocrit 38.7, and platelet count 182,000. PT 16.4, INR 1.6, PTT 34.6. Sodium 125, potassium 5.9, chlorides 97, CO2 17, anion gap 11, BUN 41, creatinine 1.82. The patient's lactic acid was initially 2.2 and repeat was 2.7. The N-terminal proBNP was 26,000. Troponins were 0.014. Chest x-ray was consistent with congestive heart failure and cardiomegaly. Progress note dated 04/19/2021. 80-year-old male, seen in the emergency department on April 17. He came with shortness of breath and mental status changes. The patient himself is a very poor historian. I was able to speak to his son yesterday, who is a surgeon, and who used to work here at this hospital. Currently, the patient's on BiPAP with settings of IPAP 12, EPAP 5, and 100%. The patient we placed on high flow nasal cannula. The patient's getting saline at 75 mL an hour. We'll drop the IV down to KVO. He was on some norepinephrine overnight for a short period of time, but that has been weaned off. The patient is also going to be placed on Lasix 40 mg IV push twice a day. Clinically he looks a bit better. His chest x-ray and our opinion is slightly improved. The patient has a history of multiple medical problems including aortic valve stenosis, that is post repair, gastric ulcers, previous ablation for atrial fibrillation, and possibly underlying COPD from tobacco use. In addition, the patient has a history of atrial fibrillation/flutter, heart failure, diabetes, hyperlipidemia, hypertension, DJD, chronic kidney disease. According to his son, the patient's health has been declining significantly since November of this year. White count 18.5, hemoglobin 11.4, hematocrit 38.4, and platelet count 148,000. Sodium 1:30, potassium 5.3, chlorides 105, CO2 18, anion gap 9, BUN 42, creatinine 1.26. Microbiologic studies are currently negative. Chest x-ray shows cardiomegaly, with changes of CHF and small effusions. Objective - Vital Signs Vital signs: Vital Signs Temp 97.7 F 04/19/21 04:00 Pulse 60 04/19/21 09:11 Resp 36 H 04/19/21 08:30 BP 123/57 04/19/21 08:30 Pulse Ox 97 04/19/21 08:30 Intake & Output 04/18/21 04/19/21 04/19/21 18:59 06:59 18:59 Intake Total 2592.978 912.328 75 Output Total 575 560 35 Balance 352.328 40 Weight 72.575 kg 72.6 kg Intake: IV 2525 825 75 Sodium Chloride 0.9% 1, 525 825 75 000 ml @ 75 mls/hr IV . [id number] [facility] Rx#:[id number] Sodium Chloride 0.9% 2, 2000 000 ml @ 999 mls/hr IV . Q2H1M [facility] Rx#:[id number] Intake, IV Titration 978 87.328 Amount Norepinephrine 4 mg In 87.328 Sodium Chloride 0.9% 250 ml @ 0.05 MCG/KG/MIN 13. 826 mls/hr IV .[id number] [facility] Rx#:[id number] Output: Urine 575 560 35 Other: Voiding Method Indwelling Catheter Indwelling Catheter Indwelling Catheter - Exam Mild tachypnea, patient is maintained on BiPAP, but clinically looks more awake and alert. He is asking for water. We'll switch him to high flow nasal cannula and off BiPAP. HEENT examination is grossly unremarkable. Neck supple. Full range of motion. No adenopathy thyromegaly or neck vein distention. Cardiovascular examination reveals regular rhythm rate. S1-S2 normal. No S3 or S4. No discernible murmur noted. Heart rate is 60 bpm. Heart sounds are very distant. There is a well-healed median sternotomy scar on the chest. Lungs reveal bibasilar crackles. A few scattered rhonchi. Breath sounds are equal but diminished throughout. No distinct wheezes are noted. Abdomen soft, without bowel sounds. No masses or tenderness. Extremities are intact. No cyanosis or clubbing. Fingertips are cool. There is lower extremity edema. Skin is without rash or lesion. Neurologic examination is very difficult to assess, but the patient does move all 4 extremities. - Labs CBC & Chem 7: 04/19/21 04:25 04/19/21 04:25 Labs: Abnormal Lab Results - Last 24 Hours (Table) 04/18/21 04/18/21 04/18/21 Range/Units 10:01 10:11 10:11 WBC 18.1 H (3.8-10.6) k/uL RBC 3.63 L (4.30-5.90) m/uL Hgb 10.3 L (13.0-17.5) gm/dL Hct 34.7 L (39.0-53.0) % MCHC 29.7 L (31.0-37.0) g/dL RDW 17.9 H (11.5-15.5) % Plt Count 126 L (150-450) k/uL Neutrophils # 16.9 H (1.3-7.7) k/uL Lymphocytes # 0.3 L (1.0-4.8) k/uL ABG pCO2 34 L (35-45) mmHg ABG pO2 75 L (83-108) mmHg ABG HCO3 19 L (21-25) mmol/L Sodium 124 L (137-145) mmol/L Potassium 5.6 H (3.5-5.1) mmol/L Carbon Dioxide 16 L (22-30) mmol/L BUN 44 H (9-20) mg/dL Creatinine 1.76 H (0.66-1.25) mg/dL Glucose 147 H (74-99) mg/dL POC Glucose (mg/dL) (75-99) mg/dL Plasma Lactic Acid Brad (0.7-2.0) mmol/L Calcium 7.7 L (8.4-10.2) mg/dL Total Protein 5.2 L (6.3-8.2) g/dL Albumin 2.2 L (3.5-5.0) g/dL TSH (0.465-4.680) mIU/L Urine Protein (Negative) Urine Blood (Negative) Urine RBC (0-5) /hpf Urine Bacteria (None) /hpf Hyaline Casts (0-2) /lpf Urine Mucus (None) /hpf 04/18/21 04/18/21 04/18/21 Range/Units 10:11 10:11 10:18 WBC (3.8-10.6) k/uL RBC (4.30-5.90) m/uL Hgb (13.0-17.5) gm/dL Hct (39.0-53.0) % MCHC (31.0-37.0) g/dL RDW (11.5-15.5) % Plt Count (150-450) k/uL Neutrophils # (1.3-7.7) k/uL Lymphocytes # (1.0-4.8) k/uL ABG pCO2 (35-45) mmHg ABG pO2 (83-108) mmHg ABG HCO3 (21-25) mmol/L Sodium (137-145) mmol/L Potassium (3.5-5.1) mmol/L Carbon Dioxide (22-30) mmol/L BUN (9-20) mg/dL Creatinine (0.66-1.25) mg/dL Glucose (74-99) mg/dL POC Glucose (mg/dL) 119 H (75-99) mg/dL Plasma Lactic Acid Brad 2.7 H* (0.7-2.0) mmol/L Calcium (8.4-10.2) mg/dL Total Protein (6.3-8.2) g/dL Albumin (3.5-5.0) g/dL TSH 7.480 H (0.465-4.680) mIU/L Urine Protein (Negative) Urine Blood (Negative) Urine RBC (0-5) /hpf Urine Bacteria (None) /hpf Hyaline Casts (0-2) /lpf Urine Mucus (None) /hpf 04/18/21 04/18/21 04/18/21 Range/Units 12:54 16:06 16:26 WBC (3.8-10.6) k/uL RBC (4.30-5.90) m/uL Hgb (13.0-17.5) gm/dL Hct (39.0-53.0) % MCHC (31.0-37.0) g/dL RDW (11.5-15.5) % Plt Count (150-450) k/uL Neutrophils # (1.3-7.7) k/uL Lymphocytes # (1.0-4.8) k/uL ABG pCO2 (35-45) mmHg ABG pO2 (83-108) mmHg ABG HCO3 (21-25) mmol/L Sodium (137-145) mmol/L Potassium (3.5-5.1) mmol/L Carbon Dioxide (22-30) mmol/L BUN (9-20) mg/dL Creatinine (0.66-1.25) mg/dL Glucose (74-99) mg/dL POC Glucose (mg/dL) (75-99) mg/dL Plasma Lactic Acid Brad 2.6 H* 2.2 H* (0.7-2.0) mmol/L Calcium (8.4-10.2) mg/dL Total Protein (6.3-8.2) g/dL Albumin (3.5-5.0) g/dL TSH (0.465-4.680) mIU/L Urine Protein 1+ H (Negative) Urine Blood Small H (Negative) Urine RBC 9 H (0-5) /hpf Urine Bacteria Rare H (None) /hpf Hyaline Casts 65 H (0-2) /lpf Urine Mucus Rare H (None) /hpf 04/19/21 04/19/21 Range/Units 04:25 04:25 WBC 18.5 H (3.8-10.6) k/uL RBC 4.15 L (4.30-5.90) m/uL Hgb 11.4 L (13.0-17.5) gm/dL Hct 38.4 L (39.0-53.0) % MCHC 29.7 L (31.0-37.0) g/dL RDW 18.2 H (11.5-15.5) % Plt Count 148 L (150-450) k/uL Neutrophils # 17.1 H (1.3-7.7) k/uL Lymphocytes # 0.3 L (1.0-4.8) k/uL ABG pCO2 (35-45) mmHg ABG pO2 (83-108) mmHg ABG HCO3 (21-25) mmol/L Sodium 130 L (137-145) mmol/L Potassium 5.3 H (3.5-5.1) mmol/L Carbon Dioxide 16 L (22-30) mmol/L BUN 42 H (9-20) mg/dL Creatinine 1.26 H (0.66-1.25) mg/dL Glucose (74-99) mg/dL POC Glucose (mg/dL) (75-99) mg/dL Plasma Lactic Acid Brad (0.7-2.0) mmol/L Calcium 7.9 L (8.4-10.2) mg/dL Total Protein (6.3-8.2) g/dL Albumin (3.5-5.0) g/dL TSH (0.465-4.680) mIU/L Urine Protein (Negative) Urine Blood (Negative) Urine RBC (0-5) /hpf Urine Bacteria (None) /hpf Hyaline Casts (0-2) /lpf Urine Mucus (None) /hpf Assessment and Plan Assessment: Acute hypoxemic respiratory failure secondary to congestive heart failure. History of atrial fibrillation/atrial flutter, status post ablation. His type 2 diabetes mellitus. History of aortic valve stenosis, status post repair. History of hyperlipidemia. His stream of hypertension. Osteoarthritis. Chronic kidney disease. History of gastric ulcers. History of anemia. Prior thoracic surgery, most recently in November of this year. Status post fall with hip fracture. Plan: Plan dated 04/18/2021. The patient be transferred to the intensive care unit. I told the nurses give the patient fluids initially and then some norepinephrine. Additional recomme ndations and suggestions are forthcoming. The patient may end up eating intubated for respiratory failure. Additional recommendations and suggestions are forthcoming. His medications are reviewed. Prognosis is very guarded. Unnecessary oral medications are discontinued. We will continue to follow make recommendations where appropriate. Plan dated 04/19/2021. Currently, the patient appears be a bit better. His chest x-rays somewhat improved. We increase his Lasix up to 40 mg IV push twice a day. Turn his fluids down to KVO. We'll take him off the BiPAP in place him on high flow nasa l cannula. The norepinephrine which was on last night, has been weaned off. I did speak to his son. Apparently the patient's health has been declining significantly since November or so of this year. He apparently had open heart surgery then fell and broke his hip. The son mentioned that they may go comfort measures today. Additional recommendations and suggestions are forthcoming. Time with Patient: Less than 30
--- NOTE | 2021-04-19 11:16 | P.PN ---
Subjective Patient ia 80 -year-old male came in with altered mental status found to be hypoxic patient was started on BiPAP. Patient is found to be in heart failure with significant pulmonary bilateral pulmonary edema. She was hyponatremic to his is ejection fraction is not known at this time patient has creatinine of 1.8 to baseline is around 0.8. Patient has highly elevated potassium of 5.9 patient is on lisinopril patient appears to be in significant heart failure. had BNP of 4 26,000 patient does have lactic acidosis which is bit worse compared to admission patient was started on IV Lasix. Patient does have history of atrial fibrillation is unknown Eliquis 5 g twice a day. Later in the day after admission patient became hypotensive, a team was called and patient was subsequently transferred to ICU for norepinephrine drip and IV fluids may need intubation please refer to the physicians note who was leading the A- team. 04/19/2021 Patient is much more awake and the clinically doing much better patient is presently on Airvo with a 90% FiO2. Patient was pretty status did improve patient was started on IV Lasix. Patient is asking for water all the time. Patient mental status is at his baseline at this time. Patient's IV fluids were discussed uterine and the patient is off norepinephrine patient is a wasn't year IV Lasix which are started today morning. Regarding on showed EF of around 60% to 70% REVIEW OF SYSTEMS: Unable to obtain due to his clinical condition PHYSICAL EXAMINATION: GENERAL: he is on BiPAP was not in acute respiratory distress when I valid the patient later on patient went into respiratory distress not in any acute distress. Well developed, well nourished. HEENT: Pupils are round and equally reacting to light. EOMI. No scleral icterus. No conjunctival pallor. Normocephalic, atraumatic. No pharyngeal erythema. No thyromegaly. She does have elevated JVD CARDIOVASCULAR: S1 and S2 present. No murmurs, rubs, or gallops. PULMONARY: Crackles bilaterally ABDOMEN: Soft, nontender, nondistended, normoactive bowel sounds. No palpable organomegaly. MUSCULOSKELETAL: No joint swelling or deformity. EXTREMITIES: No cyanosis, clubbing, and bilateral lower extremity edema NEUROLOGICAL: Gross neurological examination did not reveal any focal deficits. SKIN: No rashes. Assessment and plan -Congestive heart failure chronic diastolic dysfunction with acute exacerbation: Patient was restarted on IV Lasix. Patient does have cardiac shock. Blood pressures much better today norepinephrine and IV fluids were discontinued -Cardiac shock -Acute hypoxic respiratory failure presently on high flow oxygen secondary to congestive heart failure exacerbation -Acute renal failure prerenal azotemia secondary to congestive heart failure and possible cardiac shock improved presently 1.2 -Hyperkalemia secondary to renal failure and SHANEL inhibitor -Hypervolemic hyponatremia secondary to heart failure -Atrial fibrillation presently rate rate controlled he appears to have persistent A. fib , patient is on Eliquis 5 mg twice a day -Type 2 diabetes mellitus -hyperlipidemia -Hypertension DVT prophylaxis: On Eliquis will cut down the dose of Eliquis to 5 mg twice a day Objective - Vital Signs Vital signs: Vital Signs Temp 97.7 F 04/19/21 04:00 Pulse 58 L 04/19/21 10:30 Resp 41 H 04/19/21 10:30 BP 102/61 04/19/21 10:30 Pulse Ox 91 L 04/19/21 10:30 Intake & Output 04/18/21 04/19/21 04/19/21 18:59 06:59 18:59 Intake Total 2592.978 912.328 190 Output Total 575 560 110 Balance 97 352.328 80 Weight 72.575 kg 72.6 kg Intake: IV 2525 825 190 Sodium Chloride 0.9% 1, 525 825 190 000 ml @ 20 mls/hr IV . Q24H [facility] Rx#:[id number] Sodium Chloride 0.9% 2, 2000 000 ml @ 999 mls/hr IV . Q2H1M [facility] Rx#:[id number] Intake, IV Titration .978 87.328 Amount Norepinephrine 4 mg In 978 87.328 Sodium Chloride 0.9% 250 ml @ 0.05 MCG/KG/MIN 13. 826 mls/hr IV .[id number] [facility] Rx#:[id number] Output: Urine 575 560 110 Other: Voiding Method Indwelling Catheter Indwelling Catheter Indwelling Catheter - Labs CBC & Chem 7: 04/19/21 04:25 04/19/21 04:25 Labs: Abnormal Lab Results - Last 24 Hours (Table) 04/18/21 04/18/21 04/18/21 Range/Units 10:11 12:54 16:06 WBC (3.8-10.6) k/uL RBC (4.30-5.90) m/uL Hgb (13.0-17.5) gm/dL Hct (39.0-53.0) % MCHC (31.0-37.0) g/dL RDW (11.5-15.5) % Plt Count (150-450) k/uL Neutrophils # (1.3-7.7) k/uL Lymphocytes # (1.0-4.8) k/uL Sodium (137-145) mmol/L Potassium (3.5-5.1) mmol/L Carbon Dioxide (22-30) mmol/L BUN (9-20) mg/dL Creatinine (0.66-1.25) mg/dL Plasma Lactic Acid Brad 2.6 H* 2.2 H* (0.7-2.0) mmol/L Calcium (8.4-10.2) mg/dL TSH 7.480 H (0.465-4.680) mIU/L Urine Protein (Negative) Urine Blood (Negative) Urine RBC (0-5) /hpf Urine Bacteria (None) /hpf Hyaline Casts (0-2) /lpf Urine Mucus (None) /hpf 04/18/21 04/19/21 04/19/21 Range/Units 16:26 04:25 04:25 WBC 18.5 H (3.8-10.6) k/uL RBC 4.15 L (4.30-5.90) m/uL Hgb 11.4 L (13.0-17.5) gm/dL Hct 38.4 L (39.0-53.0) % MCHC 29.7 L (31.0-37.0) g/dL RDW 18.2 H (11.5-15.5) % Plt Count 148 L (150-450) k/uL Neutrophils # 17.1 H (1.3-7.7) k/uL Lymphocytes # 0.3 L (1.0-4.8) k/uL Sodium 130 L (137-145) mmol/L Potassium 5.3 H (3.5-5.1) mmol/L Carbon Dioxide 16 L (22-30) mmol/L BUN 42 H (9-20) mg/dL Creatinine 1.26 H (0.66-1.25) mg/dL Plasma Lactic Acid Brad (0.7-2.0) mmol/L Calcium 7.9 L (8.4-10.2) mg/dL TSH (0.465-4.680) mIU/L Urine Protein 1+ H (Negative) Urine Blood Small H (Negative) Urine RBC 9 H (0-5) /hpf Urine Bacteria Rare H (None) /hpf Hyaline Casts 65 H (0-2) /lpf Urine Mucus Rare H (None) /hpf
[2021-04-19 14:40] VITALS: BP 126/63; PULSE 59; RESP 30
[2021-04-19] MEDS ORDERED: MORPHINE SULFATE 2 MG/ML SYRINGE IV PRN (14:54)
[2021-04-19] MEDS ORDERED: LORazepam 2 MG/ML INJ IV PRN (14:54)
[2021-04-19] MEDS ORDERED: MORPHINE SULFATE 4 MG/ML SYRINGE IV PRN (14:54)
[2021-04-19] MEDS ORDERED: SCOPOLAMINE 1.5MG/72HR PATCH TRANSDERM SCH (15:00)
[2021-04-19] MEDS ORDERED: MORPHINE SULFATE (100 MG/2 ML) 100 MG in SODIUM CHLORIDE 0.9% 100 ML IV SCH (15:30)
[2021-04-19] MEDS ORDERED: FUROSEMIDE 10 MG/ML 4 ML VIAL IV SCH (21:00)
[2021-04-21] MEDS ORDERED: CYANOCOBALAMIN 1,000 MCG/ML 1 ML VIAL SQ SCH (21:00)
== END 2021-04-19 18:00 | disposition expired | DRG 291 ==
LOC: EC 21:50 → 3SCARD 23:27 → 2SICU 04-18 09:47
PROVIDERS: ADMIT Hospitalist; ATTEND Hospitalist
DX: I13.0 Hypertensive heart and chronic kidney disease with heart failure and stage 1 through stage 4 chronic kidney disease, or unspecified chronic kidney disease (principal); J96.01 Acute respiratory failure with hypoxia; J80 Acute respiratory distress syndrome; I50.42 Chronic combined systolic (congestive) and diastolic (congestive) heart failure; I48.19 Other persistent atrial fibrillation; N17.9 Acute kidney failure, unspecified; E87.2 Acidosis; E87.1 Hypo-osmolality and hyponatremia; R57.0 Cardiogenic shock; Z20.822 Contact with and (suspected) exposure to COVID-19; F41.9 Anxiety disorder, unspecified; I07.1 Rheumatic tricuspid insufficiency; I35.0 Nonrheumatic aortic (valve) stenosis; M19.90 Unspecified osteoarthritis, unspecified site; N18.9 Chronic kidney disease, unspecified; E87.5 Hyperkalemia; E78.5 Hyperlipidemia, unspecified; E11.22 Type 2 diabetes mellitus with diabetic chronic kidney disease; D64.9 Anemia, unspecified; Z79.01 Long term (current) use of anticoagulants; Z79.82 Long term (current) use of aspirin; Z79.890 Hormone replacement therapy; Z79.899 Other long term (current) drug therapy; Z87.11 Personal history of peptic ulcer disease; Z87.891 Personal history of nicotine dependence; Z95.0 Presence of cardiac pacemaker; Z95.810 Presence of automatic (implantable) cardiac defibrillator; Z95.1 Presence of aortocoronary bypass graft
CPT/HCPCS: 36415; 36600; 71045; 80048; 80053; 81001; 82533; 82550; 82805; 83605; 83735; 83880; 84443; 84484; 85025; 85610; 85730; 87040; 87635; 93005; 93306; 94640; 94645; 94660; 96374; 99291